=== PATIENT | male | born 1980 ===

== ENCOUNTER 2020-03-26 08:32 | Outpatient (REF) | payer OTHER, SELFPAY ==
[2020-03-26 20:09] LABS: ALT 55 U/L (16-63); AST 22 U/L (15-37); Albumin 3.7 g/dL (3.4-5.0); Alkaline Phosphatase 77 U/L (46-116); Anion Gap 5.8 mmol/L (3-11); BUN 18 mg/dL (7-18); Bilirubin, Total 0.3 mg/dL (0.2-1.0); CO2 30.2 mmol/L (21.0-32.0); CREATININE 0.95 mg/dL (0.70-1.30); Calcium 8.9 mg/dL (8.5-10.1); Calculated LDL 182 mg/dL (<100); Chloride 105 mmol/L (98-107); Cholesterol 237 mg/dL (<200); Glucose 96 mg/dL (74-106); HDL Cholesterol 45 mg/dL (40-60); Potassium 4.1 mmol/L (3.5-5.1); Sodium 141 mmol/L (136-145); Total Protein 7.2 g/dL (6.4-8.2); Triglyceride 51 mg/dL (<150)
== END 2020-03-26 08:52 ==
LOC: NCHCN 08:32
PROVIDERS: Visit Provider Physician Assistant
DX: Z00.00 Encounter for general adult medical examination without abnormal findings (principal); E78.5 Hyperlipidemia, unspecified; J45.990 Exercise induced bronchospasm
CPT/HCPCS: 80053; 80061

== ENCOUNTER 2022-03-09 17:57 | Outpatient (REF) | payer OTHER, SELFPAY ==
[2022-03-09 20:30] LABS: ALT 41 U/L (16-63); AST 24 U/L (15-37); Albumin 3.5 g/dL (3.4-5.0); Alkaline Phosphatase 79 U/L (46-116); Anion Gap 6.5 mmol/L (3-11); BUN 18 mg/dL (7-18); Bilirubin, Total 0.2 mg/dL (0.2-1.0); CO2 32.5 mmol/L (21.0-32.0); CREATININE 1.2 mg/dL (0.70-1.30); Calcium 8.7 mg/dL (8.5-10.1); Chloride 101 mmol/L (98-107); Estimated GFR 78.89 (mL/min/1.73m2); Glucose 89 mg/dL (74-106); LDL CHOLESTEROL 122 mg/dL (<100); Potassium 4.1 mmol/L (3.5-5.1); Sodium 140 mmol/L (136-145); Total Protein 7.9 g/dL (6.4-8.2)
== END 2022-03-09 17:58 | disposition home or self-care (01) ==
LOC: NCHCN 17:57
PROVIDERS: Visit Provider Physician Assistant
DX: Z00.00 Encounter for general adult medical examination without abnormal findings (principal); E78.5 Hyperlipidemia, unspecified
CPT/HCPCS: 80053; 83721

== ENCOUNTER 2023-07-05 15:42 | Outpatient (REF) | payer OTHER, SELFPAY ==
[2023-07-05 20:26] LABS: ALT 55 U/L (16-63); AST 28 U/L (15-37); Albumin 3.7 g/dL (3.4-5.0); Alkaline Phosphatase 72 U/L (46-116); Anion Gap 4.8 mmol/L (3-11); BUN 14 mg/dL (7-18); Bilirubin, Total 0.7 mg/dL (0.2-1.0); CO2 30.2 mmol/L (21.0-32.0); CREATININE 1.1 mg/dL (0.70-1.30); Calcium 9.1 mg/dL (8.5-10.1); Calculated LDL 123 mg/dL (<100); Chloride 103 mmol/L (98-107); Cholesterol 184 mg/dL (<200); Estimated GFR 87.03 (mL/min/1.73m2); Glucose 99 mg/dL (74-106); HDL Cholesterol 46 mg/dL (40-60); Potassium 4.3 mmol/L (3.5-5.1); Sodium 138 mmol/L (136-145); Total Protein 8.1 g/dL (6.4-8.2); Triglyceride 76 mg/dL (<150)
== END 2023-07-05 15:43 | disposition home or self-care (01) ==
LOC: NCHCN 15:42
PROVIDERS: PCP Physician Assistant; Visit Provider Internal Medicine
DX: Z00.00 Encounter for general adult medical examination without abnormal findings (principal)
CPT/HCPCS: 80053; 80061

== ENCOUNTER 2024-09-26 15:02 | Outpatient (REF) | payer OTHER, SELFPAY ==
[2024-09-26 20:03] LABS: ALT 53 U/L (16-63); AST 33 U/L (15-37); Albumin 3.7 g/dL (3.4-5.0); Alkaline Phosphatase 81 U/L (46-116); Anion Gap 6.8 mmol/L (3-11); BUN 16 mg/dL (7-18); Bilirubin, Total 0.6 mg/dL (0.2-1.0); CO2 29.2 mmol/L (21.0-32.0); Calcium 9.3 mg/dL (8.5-10.1); Calculated LDL 95 mg/dL (<100); Chloride 107 mmol/L (98-107); Cholesterol 156 mg/dL (<200); Estimated GFR 96.37 (mL/min/1.73m2); Glucose 98 mg/dL (74-106); HDL Cholesterol 55 mg/dL (>or=40); Potassium 4.7 mmol/L (3.5-5.1); Sodium 143 mmol/L (136-145); Total Protein 7.5 g/dL (6.4-8.2); Triglyceride 31 mg/dL (<150)
[2024-09-29 09:46] LABS: HIV-1/2 Ag & Ab Screen Negative (Negative)
[2024-09-30 11:36] LABS: Hepatitis C Ab w Rflx HCV PCR Negative (Negative)
== END 2024-09-26 15:03 | disposition home or self-care (01) ==
LOC: NCHCN 15:02
PROVIDERS: PCP Physician Assistant; Visit Provider Physician Assistant
DX: E78.5 Hyperlipidemia, unspecified (principal); Z11.59 Encounter for screening for other viral diseases; Z11.4 Encounter for screening for human immunodeficiency virus [HIV]
CPT/HCPCS: 80053; 80061; 86803; 87389